=== PATIENT | male | born 2005 | race Two or more races ===

== ENCOUNTER 2025-07-01 19:40 | Emergency (ER) | payer MEDICAID, SELFPAY ==
[2025-07-01 19:43] VITALS: BMI 33.9
[2025-07-01 20:16] VITALS: BP 122/79; PULSE 85; RESP 20; TEMP 37.1; O2SAT 98
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
[2025-07-01 21:48] VITALS: BP 136/73; PULSE 83; RESP 23; TEMP 37; O2SAT 99
[2025-07-01 22:02] LABS: Basophils # (Auto) 0.0 Thou/mm3 (0.0-0.2); Basophils % (Auto) 0 % (0-2.5); Eosinophils # (Auto) 0.1 Thou/mm3 (0.0-0.5); Eosinophils % (Auto) 0 % (0-10); Hematocrit 40.6 % (41.0-53.0); Hemoglobin 14.1 g/dL (13.5-16.0); Immature Granulocytes Auto 0.05 Thou/mm3 (0.00-0.00); Lymphocytes # (Auto) 2.0 Thou/mm3 (1.0-4.8); Lymphocytes % (Auto) 14 % (10-50); Mean Corpuscular HGB Conc 34.7 g/dl (31.0-37.0); Mean Corpuscular Hemoglobin 28.3 pg (25.0-35.0); Mean Corpuscular Volume 81 fL (80-100); Monocytes # (Auto) 0.9 Thou/mm3 (0.0-0.8); Monocytes % (Auto) 7 % (0-12); Neutrophils # (Auto) 10.8 Thou/mm3 (1.8-7.7); Neutrophils % (Auto) 78 % (37-80); Nucleated Red Blood Cell # 0.00 Thou/mm3 (0.00-0.00); Nucleated Red Blood Cell % 0 /100 WBC (0); Platelet Count 300 Thou/mm3 (140-440); RDW Standard Deviation 39.3 fL (35.1-43.9); Red Blood Count 4.99 Miln/mm3 (4.50-5.90); White Blood Count 13.8 Thou/mm3 (3.8-10.6)
[2025-07-01 22:13] LABS: Anion Gap 10 (7-16); BUN/Creatinine Ratio 11 Ratio (12-20); Blood Urea Nitrogen 10 mg/dL (9-23); Calcium 9.4 mg/dL (8.3-10.6); Carbon Dioxide 28.2 mMol/L (20.0-31.0); Chloride 106 mMol/L (98-107); Creatinine (Component) 0.9 mg/dL (0.6-1.3); Estimated Creatinine Clearance 140.3 mL/min (>60); Glucose 83 mg/dL (74-106); Magnesium 1.8 mg/dL (1.6-2.6); Osmolality,Calculated 284 (275-295); Potassium 3.5 mMol/L (3.4-5.1); Sodium 144 mMol/L (136-145); eGFR > 60 See Note
[2025-07-01 22:14] LABS: INR 1.0 (0.9-1.3); Partial Thromboplastin Time 30.8 Seconds (22.0-36.0); Prothrombin Time 10.7 Seconds (9.0-12.2)
[2025-07-01] MEDS: ONDANSETRON INJ 2 MG/ML INJ 2 ML 4 MG IVP (22:54)
[2025-07-01] MEDS: SODIUM CHLORIDE 0.9% 1000 ML 1,000 ML 999 ML IV (22:55)
[2025-07-01] MEDS: MIDAZOLAM INJ 1 MG/ML VIAL 2 ML 7.5 MG IVP (23:02)
[2025-07-01] MEDS: fentaNYL CIT INJ 50 mCg/ML AMP 2ML 100 MCG IVP (23:02)
[2025-07-01 23:08] VITALS: BP 145/89; PULSE 79; RESP 20; O2SAT 97
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
[2025-07-01 23:16] VITALS: PULSE 80; RESP 19; O2SAT 98
[2025-07-01 23:59] VITALS: BP 110/63; PULSE 82; RESP 16; TEMP 36.9; O2SAT 95
[2025-07-02] MEDS: KETOROLAC INJ 30 MG/ML VIAL IVP (00:41)
[2025-07-02] MEDS: HYDROmorphone INJ 2 MG/ML VIAL 1 MG IVP (00:42)
[2025-07-02 00:43] VITALS: BP 128/67; PULSE 70; RESP 19; TEMP 36.6; O2SAT 97
--- NOTE | 2025-07-02 01:14 | PC.NURSE ---
CALLED REPORT TO [facility] SPOKE TO JOB MACKAY.
== END 2025-07-02 01:09 | disposition short-term general hospital (02) ==
PROVIDERS: Emergency Provider Emergency Medicine; PCP Family Medicine
DX: S52.502A Unspecified fracture of the lower end of left radius, initial encounter for closed fracture (principal); V86.55XA Driver of 3- or 4- wheeled all-terrain vehicle (ATV) injured in nontraffic accident, initial encounter; Z75.1 Person awaiting admission to adequate facility elsewhere
CPT/HCPCS: 25605; 36415; 73110; 80048; 83735; 85025; 85610; 85730; 96361; 96374; 96375; 99284; J1171; J1885; J2250; J2405; J3010; J7030

== ENCOUNTER → 2025-09-10 | Outpatient (CLI) | payer MEDICAID, SELFPAY ==
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
== END | disposition home or self-care (01) ==
LOC: CDIM 12:03
PROVIDERS: PCP Family Medicine; Referring Provider Orthopaedic Surgery; Visit Provider Orthopaedic Surgery
DX: S52.92XA Unspecified fracture of left forearm, initial encounter for closed fracture (principal); X58.XXXA Exposure to other specified factors, initial encounter; Z98.890 Other specified postprocedural states
CPT/HCPCS: 73110